=== PATIENT | female | born 2000 | race Hispanic/Latino ===

== ENCOUNTER 2022-04-22 18:38 | Emergency (ER) | payer OTHER ==
[2022-04-22] MEDS ORDERED: HYDROMORPHONE HCL 1 MG/ML INJ ONE (19:09)
--- NOTE | 2022-04-22 19:45 | RAD REPORT ---
EXAM DESCRIPTION: RAD - Knee Left 2 View - 04/22/2022 7:35 pm CLINICAL HISTORY: Left knee pain FINDINGS: Limited two view series Lateral patellar dislocation No fracture seen
--- NOTE | 2022-04-22 19:48 | EDPHYS ---
Physician Documentation [facility] Name: Grazyna Cotter Age: 21 yrs Sex: Female : 2000 Arrival Date: 04/22/2022 Time: 18:41 Bed 18 Private MD: ED Physician Kade Wright HPI: 04/22 19:04 This 21 yrs old Female presents to ER via EMS with complaints of Knee Injury. snw 19:04 The patient presents with decreased range of motion, a deformity, an injury. The snw complaints affect the left knee. Context: The problem was sustained outdoors, resulted from a direct blow, ball, the patient is not able to bear weight, the patient is not able to ambulate, Problem is a result from a previous injury: No. Onset: The symptoms/episode began/occurred suddenly, just prior to arrival. Modifying factors: the symptoms are aggravated by movement. Associated signs and symptoms: The patient has no apparent associated signs or symptoms. Treatment prior to arrival includes: splinting the affected extremity. Severity of symptoms: At their worst the symptoms were moderate. The patient has not experienced similar symptoms in the past. The patient has not recently seen a physician. - Immunization history:: Adult Immunizations up to date. - Social history:: Smoking status: Patient denies any tobacco usage or history of. ROS: 18:58 Constitutional: Negative for fever, chills, and weight loss, Eyes: Negative for injury, snw pain, redness, and discharge, ENT: Negative for injury, pain, and discharge, Neck: Negative for injury, pain, and swelling, Cardiovascular: Negative for chest pain, palpitations, and edema, Respiratory: Negative for shortness of breath, cough, wheezing, and pleuritic chest pain, Abdomen/GI: Negative for abdominal pain, nausea, vomiting, diarrhea, and constipation, Back: Negative for injury and pain, : Negative for injury, bleeding, discharge, and swelling, Skin: Negative for injury, rash, and discoloration, Neuro: Negative for headache, weakness, numbness, tingling, and seizure, Psych: Negative for depression, anxiety, suicide ideation, homicidal ideation, and hallucinations. 18:58 MS/extremity: Positive for injury or acute deformity, decreased range of motion, pain. Exam: 18:55 Constitutional: This is a well developed, well nourished patient who is awake, alert, snw and in no acute distress. Head/Face: Normocephalic, atraumatic. Eyes: Pupils equal round and reactive to light, extra-ocular motions intact. Lids and lashes normal. Conjunctiva and sclera are non-icteric and not injected. Cornea within normal limits. Periorbital areas with no swelling, redness, or edema. ENT: Nares patent. No nasal discharge, no septal abnormalities noted. Tympanic membranes are normal and external auditory canals are clear. Oropharynx with no redness, swelling, or masses, exudates, or evidence of obstruction, uvula midline. Mucous membranes moist. Neck: Trachea midline, no thyromegaly or masses palpated, and no cervical lymphadenopathy. Supple, full range of motion without nuchal rigidity, or vertebral point tenderness. No Meningismus. Chest/axilla: Normal chest wall appearance and motion. Nontender with no deformity. No lesions are appreciated. Cardiovascular: Regular rate and rhythm with a normal S1 and S2. No gallops, murmurs, or rubs. Normal PMI, no JVD. No pulse deficits. Respiratory: Lungs have equal breath sounds bilaterally, clear to auscultation and percussion. No rales, rhonchi or wheezes noted. No increased work of breathing, no retractions or nasal flaring. Abdomen/GI: Soft, non-tender, with normal bowel sounds. No distension or tympany. No guarding or rebound. No evidence of tenderness throughout. Back: No spinal tenderness. No costovertebral tenderness. Full range of motion. Skin: Warm, dry with normal turgor. Normal color with no rashes, no lesions, and no evidence of cellulitis. Neuro: Awake and alert, GCS 15, oriented to person, place, time, and situation. Cranial nerves II-XII grossly intact. Motor strength 5/5 in all extremities. Sensory grossly intact. Cerebellar exam normal. Normal gait. Psych: Awake, alert, with orientation to person, place and time. Behavior, mood, and affect are within normal limits. 18:55 Musculoskeletal/extremity: Extremities: grossly normal except: noted in the left knee: ROM: limited active range of motion, limited passive range of motion, Circulation is intact in all extremities. the left leg Sensation intact. Joints: the left knee displays dislocation. Vital Signs: 18:42 BP 95 / 47; Pulse 89; Resp 17; Temp 98.0; Pulse Ox 99% ; Weight 91.63 kg; Height 5 ft. ll1 3 in. (160.02 cm); Pain 6/10; 19:28 BP 124 / 76; Pulse 96; Resp 18 S; Pulse Ox 100% on R/A; as6 20:09 Pain 3/10; tw5 18:42 Body Mass Index 35.78 (91.63 kg, 160.02 cm) ll1 Procedures: 19:45 Reduction: of the left knee, using manipulation, Immobilized with knee immobilizer. snw Patient tolerated well. MDM: 18:47 Patient medically screened. sherri 19:44 Data reviewed: vital signs, nurses notes, radiologic studies. Data interpreted: Pulse snw oximetry: on room air is 100 %. Interpretation: normal. Counseling: I had a detailed discussion with the patient and/or guardian regarding: the historical points, exam findings, and any diagnostic results supporting the discharge/admit diagnosis, radiology results, the need for outpatient follow up, to return to the emergency department if symptoms worsen or persist or if there are any questions or concerns that arise at home. Response to treatment: the patient's symptoms have markedly improved after treatment. Special discussion: Based on the history and exam findings, there is no indication for further emergent testing or inpatient evaluation. I discussed with the patient/guardian the need to see the orthopedic surgeon for further evaluation of the symptoms. 04/22 18:52 Order name: Knee Left 2 View XRAY; Complete Time: 19:46 snw 04/22 19:47 Order name: Knee Left 2 View XRAY snw 04/22 18:52 Order name: IV; Complete Time: 19:00 snw 04/22 18:55 Order name: Knee Immobilizer; Complete Time: 20:02 snw Administered Medications: 19:27 Drug: Dilaudid (HYDROmorphone) 1 mg Route: IVP; Site: left antecubital; as6 20:09 Follow up: Pain 3/10 Adult; Response: No adverse reaction; Pain is decreased; RASS: tw5 Alert and Calm (0) Disposition Summary: 04/22/22 19:48 Discharge Ordered Location: Home snw Condition: Stable snw Diagnosis - Lateral dislocation of left patella snw Followup: snw - With: Emergency Department - When: As needed - Reason: Worsening of condition Followup: snw - With: Moustapha Gordon MD - When: 2 - 3 days - Reason: Recheck today's complaints, Continuance of care Discharge Instructions: - Discharge Summary Sheet snw - How to Use a Knee Immobilizer snw - Patellar Dislocation snw Forms: - Work release form snw - Medication Reconciliation Form snw - Thank You Letter snw - Antibiotic Education snw - Prescription Opioid Use snw Prescriptions: - Tylenol-Codeine #3 300 mg-30 mg Oral - take 1 tablet by ORAL route every 6-8 hours; 18 tablet; Refills: 0, Product snw Selection Permitted Signatures: Dispatcher [employer] EDMS Kade Wright MD MD cha Waters, Shelly, ROOFING MACHINE TENDER-C ROOFING MACHINE TENDER-Csnw Jessie Grant, RN RN ll1 Jassi James RN RN as6 Lady Mendoza 5
--- NOTE | 2022-04-22 19:48 | ER ---
Nurse's Notes [facility] Name: Grazyna Cotter Age: 21 yrs Sex: Female : 2000 Arrival Date: 04/22/2022 Time: 18:41 Bed 18 Private MD: Diagnosis: Lateral dislocation of left patella Presentation: 04/22 18:42 Chief complaint: Patient states: Got hit in L leg playing dodgeball at a [employer] party 15 min ll1 [facility]. L leg buckled, L knee pain since. EMS states: [facility]. Coronavirus screen: Vaccine status: Patient reports receiving the 2nd dose of the covid vaccine. Client denies travel out of the [place] in the last 14 days. At this time, the client does not indicate any symptoms associated with coronavirus-19. Ebola Screen: Patient denies travel to an Ebola-affected area in the 21 days before illness onset. Initial Sepsis Screen: Does the patient meet any 2 criteria? No. Patient's initial sepsis screen is negative. Does the patient have a suspected source of infection? No. Patient's initial sepsis screen is negative. Risk Assessment: Do you want to hurt yourself or someone else? Patient reports no desire to harm self or others. Onset of symptoms was April 22, 2022. 18:42 Method Of Arrival: EMS ll1 18:42 Acuity: XENA 4 ll1 Triage Assessment: 18:47 General: Appears uncomfortable, Behavior is calm, cooperative, appropriate for age. ll1 Pain: Complains of pain in L knee Quality of pain is described as aching. Musculoskeletal: Circulation, motion, and sensation intact. Capillary refill < 3 seconds. Injury Description: Bruise. - Immunization history:: Adult Immunizations up to date. - Social history:: Smoking status: Patient denies any tobacco usage or history of. Screenin:47 Abuse screen: Denies threats or abuse. Nutritional screening: No deficits noted. ll1 Tuberculosis screening: No symptoms or risk factors identified. 18:48 Fall Risk Ambulatory Aid- Crutches/Cane/Walker (15 pts). Gait- Impaired (20 pts.). ll1 Total Maier Fall Scale indicates Low Risk Score (25-44 pts). Fall prevention measures have been instituted. Side Rails Up X 2 Placed close to Nursing Station Frequent Obs/Assesments occuring Family Present and informed to notify staff if they need to leave bedside As available Patient and Family Educated on Fall Prevention Program and strategies. Assessment: 19:00 Reassessment: No changes from previously documented assessment. report given to night ll1 shift RN. 20:09 Reassessment: Patient states feeling better. Patient states symptoms have improved. tw5 Pain: Pain currently is 3 out of 10 on a pain scale. Neuro: No deficits noted. Cardiovascular: No deficits noted. Vital Signs: 18:42 BP 95 / 47; Pulse 89; Resp 17; Temp 98.0; Pulse Ox 99% ; Weight 91.63 kg; Height 5 ft. ll1 3 in. (160.02 cm); Pain 6/10; 19:28 BP 124 / 76; Pulse 96; Resp 18 S; Pulse Ox 100% on R/A; as6 20:09 Pain 3/10; tw5 18:42 Body Mass Index 35.78 (91.63 kg, 160.02 cm) ll1 ED Course: 18:41 Patient arrived in ED. ll1 18:41 Arm band placed on Patient placed in an exam room, on a stretcher. ll1 18:43 Triage completed. ll1 18:46 Payal Hermosillo FNP-C [facility]. snw 18:46 Kade Wright MD is Attending Physician. snw 18:47 Patient has correct armband on for positive identification. Bed in low position. Call ll1 light in reach. Side rails up X 1. Pulse ox on. NIBP on. 19:00 Jessie Grant RN is Primary Nurse. ll1 19:08 Primary Nurse role handed off by Jessie Grant, CHEIKH mw2 19:13 Jassi James, CHEIKH is Primary Nurse. as6 19:24 Inserted saline lock: 20 gauge in left antecubital area, using aseptic technique. as6 19:36 Knee Left 2 View XRAY In Process Unspecified. EDMS 19:47 Moustapha Gordon MD is Referral Physician. snw 20:09 Assist provider with reduction of left knee using manipulation, Performed by Payal tw5 Jaimee ROCHE Immobilized with knee immobilizer Patient tolerated well. IV discontinued, intact, bleeding controlled, No redness/swelling at site. Pressure dressing applied. 20:09 Knee immobilizer applied on left knee. tw5 20:22 Knee Left 2 View XRAY In Process Unspecified. EDMS Administered Medications: 19:27 Drug: Dilaudid (HYDROmorphone) 1 mg Route: IVP; Site: left antecubital; as6 20:09 Follow up: Pain 3/10 Adult; Response: No adverse reaction; Pain is decreased; RASS: tw5 Alert and Calm (0) Medication: 18:47 VIS not applicable for this client. ll1 Outcome: 19:48 Discharge ordered by . flo 20:09 Discharged to home with crutches, with family. tw 20: Condition: improved 20:09 Discharge instructions given to patient, Instructed on crutch walking, Demonstrated understanding of instructions, follow-up care, medications, Prescriptions given X 1. 20:22 Discharged to home via wheelchair. tw 20:22 Patient left the ED. 5 Signatures: Dispatcher [employer] EDMS Payal Hermosillo FNP-C VEGETABLE PACKER-Nadja Dixon mw2 Jessie Grant RN RN ll1 Lady Mendoza tw5 Jassi James RN RN as6 Corrections: (The following items were deleted from the chart) 18:47 18:42 BP 146 / 83; Pulse 92bpm; Resp 17bpm; Pulse Ox 99%; Temp 98.0F; Pain 10/10; ll1 ll1 20:11 20:09 Patient did not have IV access during this emergency room visit. tw5 tw5
--- NOTE | 2022-04-22 20:31 | RAD REPORT ---
EXAM DESCRIPTION: RAD - Knee Left 2 View - 04/22/2022 8:20 pm CLINICAL HISTORY: Patellar dislocation FINDINGS: Limited two-view series obtained. Patellar dislocation appears reduced
[2022-04-22 21:24] VITALS: TEMP 98
[2022-04-22 21:26] VITALS: BP 124/76; O2SAT 100
== END 2022-04-22 20:22 | disposition home or self-care (01) ==
LOC: ER 18:38
PROC: 0QSFXZZ Reposition Left Patella, External Approach (ICD-10-PCS; principal; 2022-04-22)
DX: S83.015A Lateral dislocation of left patella, initial encounter (principal)
CPT/HCPCS: 73560 ×2; 27560; J1170; 96374; 99284